=== PATIENT | female | born 1970 | race Two or more races ===

== ENCOUNTER 2020-09-05 12:59 | Emergency (ER) | payer OTHER ==
[~2020-09-05] VITALS: Ht 152.4 cm; Wt 78.5 kg
[2020-09-05] MEDS ORDERED: SYNTHROID50 MCG PO (13:12)
[2020-09-05] MEDS ORDERED: ZESTRIL10 M1 PO (13:12)
[2020-09-05] MEDS ORDERED: FORTAMET500 MG PO (13:12)
[2020-09-05] MEDS ORDERED: KOMBIGLYZE XR1 EAC1 PO (13:13)
[2020-09-05] MEDS ORDERED: MEDROXYPROGESTE10 MG PO (18:52)
== END 2020-09-05 19:06 | disposition home or self-care (01) ==
LOC: ER 12:59
DX: N93.8 Other specified abnormal uterine and vaginal bleeding (principal)